=== PATIENT | male | born 1980 | race African-American/Black ===

== ENCOUNTER 2017-04-16 22:20 | Emergency (ER) | payer SELFPAY ==
[~2017-04-16] VITALS: Ht 175.3 cm; Wt 59.0 kg
[2017-04-16 22:30] VITALS: BP 114/76
== END 2017-04-17 01:44 | disposition left against medical advice (07) ==
LOC: EDBD 22:20 → ER 22:27
DX: R51 Headache (principal); Z53.21 Procedure and treatment not carried out due to patient leaving prior to being seen by health care provider
CPT/HCPCS: 70450